=== PATIENT | female | born 1995 | race Caucasian/White ===

== ENCOUNTER 2017-07-26 02:05 | Outpatient (CLI) | payer OTHER ==
[~2017-07-26 02:05] MED LIST: LOESTRIN1 EACH PO
[2017-07-26 02:36] VITALS: BP 124/61
== END 2017-07-26 03:30 | disposition home or self-care (01) ==
LOC: LDRP-OP 02:05 → 2WEST 02:06
DX: O47.00 False labor before 37 completed weeks of gestation, unspecified trimester (principal); Z3A.00 Weeks of gestation of pregnancy not specified
CPT/HCPCS: G0378

== ENCOUNTER 2017-12-12 20:03 | Inpatient (IN) | payer OTHER ==
[~2017-12-12] VITALS: Ht 165.1 cm; Wt 103.8 kg
[2017-12-12 20:27] VITALS: BP 136/79
[2017-12-12 21:36] LABS: BASOPHIL (%) 0.4 % (0-1); EOSINOPHIL (%) 0.7 % (0-5); EOSINOPHIL COUNT 0.1 K/uL (0-0.3); HEMATOCRIT 28.6 % (36.0-46.0); HEMOGLOBIN 8.6 G/DL (11.9-15.5); IMMATURE GRANULOCYTE (%) 0.5 % (0.0-0.7); LYMPHOCYTE (%) 23.9 % (15-42); LYMPHOCYTE COUNT 2.3 K/uL (1.0-2.8); MCH 23.7 PG (29.0-34.0); MCHC 30.1 G/DL (30.0-36.0); MCV 78.8 FL (83-99); MONOCYTE (%) 5.8 % (3-12); MONOCYTE COUNT 0.6 K/uL (0-0.8); NEUTROPHIL (%) 68.7 % (45-76); NEUTROPHIL COUNT 6.6 K/uL (1.8-6.4); PLATELET COUNT 161 K/uL (156-360); RBC DIS.WIDTH-CV 14.6 % (11.8-14.6); RBC DIS.WIDTH-SD 41.6 % (39-53); RED BLOOD COUNT 3.63 M/uL (3.80-5.20); WHITE BLOOD COUNT 9.6 K/uL (4.1-10.2)
[2017-12-12] MEDS ORDERED: ZANTAC150 MG PO (23:58)
[2017-12-13] VITALS (37 sets, daily range): BP systolic 98–159; BP diastolic 55–85
[2017-12-13] MEDS ORDERED: IBUPROFEN800 MG PO (15:18)
[2017-12-14 08:01] VITALS: BP 133/85
[2017-12-14 15:24] VITALS: BP 131/84
[2017-12-14 23:14] VITALS: BP 153/80
[2017-12-15 06:55] VITALS: BP 124/78
[2017-12-15] MEDS ORDERED: FERROUS SULFAT325 MG PO (09:07)
== END 2017-12-15 11:35 | disposition home or self-care (01) | DRG 775 ==
LOC: LDRP-OP 20:03 → 2WEST 20:04 → LDRP-OP 01-08 03:44
PROVIDERS: Advanced Practice Midwife
PROC: 3E0R3BZ Introduction of Anesthetic Agent into Spinal Canal, Percutaneous Approach (ICD-10-PCS; principal; 2017-12-13)
PROC: 00HU33Z Insertion of Infusion Device into Spinal Canal, Percutaneous Approach (ICD-10-PCS; principal; 2017-12-13)
PROC: 0KQM0ZZ Repair Perineum Muscle, Open Approach (ICD-10-PCS; principal; 2017-12-13)
PROC: 10907ZC Drainage of Amniotic Fluid, Therapeutic from Products of Conception, Via Natural or Artificial Opening (ICD-10-PCS; principal; 2017-12-13)
PROC: 10E0XZZ Delivery of Products of Conception, External Approach (ICD-10-PCS; principal; 2017-12-13)
DX: O99.214 Obesity complicating childbirth (principal); E66.9 Obesity, unspecified; D50.9 Iron deficiency anemia, unspecified; O99.02 Anemia complicating childbirth; Z68.30 Body mass index [BMI] 30.0-30.9, adult; O69.81X0 Labor and delivery complicated by cord around neck, without compression, not applicable or unspecified; O70.1 Second degree perineal laceration during delivery; O36.0930 Maternal care for other rhesus isoimmunization, third trimester, not applicable or unspecified; Z3A.40 40 weeks gestation of pregnancy; Z37.0 Single live birth
CPT/HCPCS: 85025; C1755; G0378; J0595; J2405; J3010; J7120